=== PATIENT | female | born 1990 | race Two or more races ===

== ENCOUNTER 2019-03-28 10:15 | Emergency (ER) | payer OTHER ==
[~2019-03-28] VITALS: Ht 157.5 cm; Wt 96.2 kg
== END 2019-03-28 16:38 | disposition home or self-care (01) ==
LOC: ER 10:15
DX: J11.1 Influenza due to unidentified influenza virus with other respiratory manifestations (principal)

== ENCOUNTER 2020-07-06 18:13 | Emergency (ER) | payer OTHER ==
[~2020-07-06] VITALS: Ht 160 cm; Wt 99.8 kg
[2020-07-06] MEDS ORDERED: ZYRTEC10 MG PO (23:10)
[2020-07-06] MEDS ORDERED: FLONASE16 GM NASAL (23:10)
== END 2020-07-07 00:36 | disposition home or self-care (01) ==
LOC: ER 18:13
DX: H92.02 Otalgia, left ear (principal)

== ENCOUNTER 2021-04-10 08:29 | Emergency (ER) | payer OTHER ==
[~2021-04-10] VITALS: Ht 162.6 cm; Wt 100.7 kg
[~2021-04-10 08:29] MED LIST: FLONASE16 GM NASAL; ZYRTEC10 MG PO
== END 2021-04-10 10:53 | disposition home or self-care (01) ==
LOC: ER 08:29
DX: B34.8 Other viral infections of unspecified site (principal)

== ENCOUNTER 2021-05-31 17:04 | Emergency (ER) | payer OTHER ==
[~2021-05-31] VITALS: Ht 160 cm; Wt 99.8 kg
[2021-05-31] MEDS ORDERED: BUTALB-ACETAMI1 EAC2 PO (20:38)
== END 2021-05-31 21:24 | disposition home or self-care (01) ==
LOC: ER 17:04
DX: R51.9 Headache, unspecified (principal)

== ENCOUNTER 2022-02-15 07:23 | Outpatient (CLI) | payer OTHER ==
[~2022-02-15 07:23] MED LIST changes: +BUTALB-ACETAMI1 EAC2 PO
== END 2022-02-15 07:28 | disposition home or self-care (01) ==
LOC: MRI 07:23
DX: I70.1 Atherosclerosis of renal artery (principal)
CPT/HCPCS: 70553

== ENCOUNTER 2022-06-27 15:35 | Emergency (ER) | payer OTHER ==
[~2022-06-27] VITALS: Ht 160 cm; Wt 99.8 kg
== END 2022-06-27 20:15 | disposition home or self-care (01) ==
LOC: ER 15:35
DX: R05.8 Other specified cough (principal); J10.1 Influenza due to other identified influenza virus with other respiratory manifestations

== ENCOUNTER 2022-11-08 09:54 | Outpatient (CLI) | payer OTHER | END 2022-11-08 10:09 | disposition home or self-care (01) | LOC: RAD 09:54 | DX: M54.2 Cervicalgia (principal) ==

== ENCOUNTER 2023-12-24 09:32 | Outpatient (CLI) | payer OTHER | END 2023-12-24 09:33 | disposition home or self-care (01) | LOC: NUCLEAR 09:32 | DX: I73.9 Peripheral vascular disease, unspecified (principal) ==